=== PATIENT | male | born 1970 | race Caucasian/White ===

== ENCOUNTER 2017-05-29 01:38 | Emergency (ER) | payer OTHER ==
[~2017-05-29] VITALS: Ht 170.2 cm; Wt 90.7 kg
[2017-05-29 01:48] VITALS: BP 137/97
--- NOTE | 2017-05-29 02:19 | NUR ---
TO ER BED 8
--- NOTE | 2017-05-29 02:30 | NUR ---
Patient being evaluated by physician at bedside.
[2017-05-29 02:44] VITALS: BP 137/97
--- NOTE | 2017-05-29 02:44 | NUR ---
Patient discharged with v/s stable. Written and verbal after care instructions given and explained. Patient verbalized understanding. Ambulatory with steady gait. All questions addressed prior to discharge. Advised to follow up with PMD.
== END 2017-05-29 02:44 | disposition home or self-care (01) ==
LOC: MED 01:38
DX: E04.9 Nontoxic goiter, unspecified (principal); Z90.89 Acquired absence of other organs
CPT/HCPCS: 99281

== ENCOUNTER 2017-09-30 18:24 | Emergency (ER) | payer OTHER ==
[~2017-09-30] VITALS: Ht 172.7 cm; Wt 90.7 kg
[2017-09-30 18:25] VITALS: BP 129/96
--- NOTE | 2017-09-30 18:33 | NUR ---
PT TRIAGED, PT AMBULATED TO ER LOBBY, WAITING FOR ER BED. ERMD NOTIFIED OF PATIENT STATUS.
--- NOTE | 2017-09-30 20:45 | NUR ---
PATIENT AMBULATED TO ER BED 2.
--- NOTE | 2017-09-30 20:50 | NUR ---
PATIENT IS A 47 Y/O MALE WHO PRESENTS TO THE ED C/O COUGH. PT STATES, "I HAVE BEEN COUGHING SINCE TUESDAY." PT REPORTS 10/10 CHEST PAIN THAT DOES NOT RADIATE. PT DENIES CP, REPORTS MILD SOB, LUNG SOUNDS CRACKLES BILATERALLY, REPORTS VOMITING DENIES NAUSEA/DIARRHEA. PT AAOX4, RR EVEN/UNLABORED. PT REPOSITIONED FOR COMFORT, BED IN LOWEST POSITION. ER MD DR. YOON NOTIFIED. WILL CONTINUE TO MONITOR.
[2017-09-30] MEDS: KETOROLAC 60 MG/2 ML VIAL IM ONE (21:28)
[2017-09-30 23:05] VITALS: BP 121/82
--- NOTE | 2017-09-30 23:05 | NUR ---
Patient discharged with v/s stable. Written and verbal after care instructions given and explained. Patient alert, oriented and verbalized understanding of instructions. Ambulatory with steady gait. All questions addressed prior to discharge. ID band removed. Patient advised to follow up with PMD. Rx of PREDNISONE AND MOTRIN given. Patient educated on indication of medication including possible reaction and side effects. Opportunity to ask questions provided and answered.
== END 2017-09-30 23:05 | disposition home or self-care (01) ==
LOC: MED 18:24
DX: J02.9 Acute pharyngitis, unspecified (principal)
CPT/HCPCS: 96372; 99283; J1885

== ENCOUNTER 2019-11-16 11:19 | Inpatient (IN) | payer OTHER ==
[~2019-11-16] VITALS: Ht 162.6 cm; Wt 91.6 kg
--- NOTE | 2019-11-16 11:19 | NUR ---
Patient BIBA BLS, transferred to bed 8. RN evaluating the patient at bedside.
--- NOTE | 2019-11-16 11:29 | NUR ---
Pt providing urine in urinal at bedside
[2019-11-16 11:30] VITALS: BP 143/92
--- NOTE | 2019-11-16 11:32 | NUR ---
49 y/o M biba for generalized adbominal pain since 3am. Pt reports intermittent burning, sharp, and throbbing pain. Current pain level 7/10. Pt reports having diarrhea all last night and this morning. Pt taking Omperazole 40mg PRN. A&O x4. Respirations even and unlabored. HOB elevated, bed in lowest position, bed rail up x1. Waiting for ERMD to evaluate pt. Allergies: NKA Med hx: deveriticulitis, HDL, and sleep apnea
[2019-11-16] MEDS ORDERED: CIPR500T4 PO (11:37)
[2019-11-16] MEDS ORDERED: NACL 0.9% 1,000 ML IV ONE (11:40)
[2019-11-16] MEDS ORDERED: KETOROLAC 30 MG/ML VIAL IVP ONE (11:40)
--- NOTE | 2019-11-16 11:50 | NUR ---
Per verbal order by Dr. Del Cid. Bolus IV fluid NS 0.9% 1,000ml.
--- NOTE | 2019-11-16 12:00 | NUR ---
Patient taken to CT scan via wheelchair by tech.
[2019-11-16 12:29] LABS: BASOPHILS % (AUTO) 0.5 % (0.0-2.0); EOSINOPHILS # (AUTO) 0.1 K/uL (0-0.4); EOSINOPHILS % (AUTO) 0.7 % (0.0-4.0); HEMATOCRIT 43.8 % (36-52); HEMOGLOBIN 14.9 g/dL (12.0-18.0); LYMPHOCYTES # (AUTO) 1.3 K/uL (2.0-11.5); LYMPHOCYTES % (AUTO) 15.3 % (20.5-51.1); MEAN CORPUSCULAR HEMOGLOBIN 29 pg (27-31); MEAN CORPUSCULAR HGB CONC 34 g/dL (33-37); MEAN CORPUSCULAR VOLUME 84.9 fL (80-94); MONOCYTES # (AUTO) 0.7 K/uL (0.8-1.0); MONOCYTES % (AUTO) 8.2 % (1.7-9.3); NEUTROPHILS # (AUTO) 6.3 K/uL (1.8-7.7); NEUTROPHILS % (AUTO) 75.3 % (42.2-75.2); PLATELET COUNT (AUTO) 285 K/uL (140-450); RED BLOOD CELL COUNT(AUTO) 5.16 MIL/uL (4.20-6.10); RED CELL DISTRIBUTION WIDTH 12.8 % (11.6-13.7); WHITE BLOOD COUNT (AUTO) 8.4 K/uL (4.8-10.8)
[2019-11-16] MEDS ORDERED: MORPHINE SULFATE 4 MG/ML SYR IVP ONE ×2 (12:35→16:00)
[2019-11-16 12:46] LABS: APPEARANCE,URINE CLEAR (CLEAR); BILIRUBIN,URINE NEGATIVE (NEGATIVE); BLOOD, URINE TRACE-I (NEGATIVE); COLOR,URINE YELLOW (YELLOW); LEUKOCYTE ESTERASE ,URINE NEGATIVE (NEGATIVE); NITRITE, URINE NEGATIVE (NEGATIVE); PH,URINE 6.5 (5.0-9.0); UGLUCOSE NEGATIVE (NEGATIVE)
--- NOTE | 2019-11-16 13:10 | NUR ---
Lab at bedside
--- NOTE | 2019-11-16 13:23 | NUR ---
Pt reports pain level decreased. Current pain level 3/10.
[2019-11-16 13:58] LABS: ALBUMIN 3.4 g/dL (3.4-5.0); ANION GAP 13.9 (8-16); CARBON DIOXIDE 24.2 mmol/L (21-32); CREATININE 0.8 mg/dL (0.6-1.3); POTASSIUM 4.1 mmol/L (3.5-5.1); TOTAL BILIRUBIN 0.5 mg/dL (0.0-1.0)
--- NOTE | 2019-11-16 15:00 | NUR ---
Pt awake and alert. Vital Signs Stable. Daughter at bedside. Will continue to monitor.
[2019-11-16] MEDS ORDERED: metroNIDAZOLE 500 MG/NS PREMIX 100 ML IV ONE ×2 (15:40→17:43)
[2019-11-16] MEDS ORDERED: LEVOFLOXACIN 500 MG/D5W PREMIX 100 ML IV ONE (15:40)
[2019-11-16] MEDS ORDERED: ONDANSETRON 4 MG/2 ML VIAL IVP ONE (16:00)
--- NOTE | 2019-11-16 18:15 | NUR ---
RECEIVED BEDSIDE REPORT FROM ED NURSE. PT RESTING IN BED UPON ARRIVAL. ABLE TO MAKE NEEDS KNOWN. RESPIRATIONS EVEN AND UNLABORED WITH NO SOB OR RESPIRATORY DISTRESS. SKIN WARM AND DRY TO TOUCH. IV SITE IN LAC 18G IS CLEAN, DRY, AND INTACT. MRSA SWAB PERFORMED AND SENT TO LAB. VITAL SIGNS ARE: 128/80 BP, 98.3 TEMP, 17 RR, 89 HR, 99% SPO2 ON ROOM AIR. SAFETY MEASURES IN PLACE. WILL CONTINUE TO MONITOR.
--- NOTE | 2019-11-16 18:16 | NUR ---
Patient will be admitted to care of Dr. Butler. Admited to Med/Surge. Will go to room 105A. Belongings list completed. Report to MICHAEL Trejo.
--- NOTE | 2019-11-16 18:16 | NUR ---
Transfer of care and report given to MICHAEL Trejo
--- NOTE | 2019-11-16 19:02 | NUR ---
GAVE BEDSIDE REPORT TO NIGHTSHIFT NURSE. PT RESTING IN BED UPON ARRIVAL. ABLE TO MAKE NEEDS KNOWN. RESPIRATIONS EVEN AND UNLABORED WITH NO SOB OR RESPIRATORY DISTRESS. SKIN WARM AND DRY TO TOUCH. SAFETY MEASURES IN PLACE. PT IS STABLE
--- NOTE | 2019-11-16 19:03 | NUR ---
RECEIVED BEDSIDE REPORT FROM DAY SHIFT NURSE. SPOUSE AT BEDSIDE. PT RESTING IN BED. ABLE TO MAKE NEEDS KNOWN. RESPIRATIONS EVEN AND UNLABORED WITH NO SOB OR RESPIRATORY DISTRESS ON ROOM AIR. SKIN WARM AND DRY TO TOUCH. IV SITE IN LAC 18G IS PATENT, INTACT AND ASYMPTOMATIC. POC REVIEWED WITH PT, PT VERBALIZED UNDERSTANDING. BOARD UPDATED, SAFETY MEASURES IN PLACE. BED IN LOW POSITION, CALL LIGHT WITHIN REACH. WILL CONTINUE TO MONITOR.
[2019-11-16] MEDS ORDERED: ONDANSETRON 4 MG/2 ML VIAL IVP PRN (20:50)
--- NOTE | 2019-11-16 21:00 | NUR ---
PT UPSET D/T IS NOT HERE AND SEE PT DURING NIGHT TIME. EXPLAINED HOSPITAL SYSTEM, AND RN RECEIVED ALL ORDER FROM BY PHONE. PT UNDERSTOOD.
[2019-11-16] MEDS: DEXT 5% / NACL 0.45% 1,000 ML IV SCH (21:28)
[2019-11-16] MEDS: HYDROmorphone 1 MG/ML AMP IVP PRN (21:30)
--- NOTE | 2019-11-16 21:30 | NUR ---
PT C/O ABD PAIN 05/19, GIVEN DILAUDID MD ORDERED. PT TOLERATED WELL.
--- NOTE | 2019-11-16 23:59 | NUR ---
VS CHECKED, WITHIN PT'S BASELINE, WILL CONTINUE TO MONITOR.
[2019-11-17] VITALS: BP 122/80
--- NOTE | 2019-11-17 01:06 | NUR ---
PT C/O ABD PAIN, 03/19. GIVEN NORCO MD ORDERED. WILL CONTINUE TO MONITOR.
[2019-11-17] MEDS: HYDROcodone/APAP 5/325 MG 1 TAB TAB PO PRN (01:07)
--- NOTE | 2019-11-17 02:15 | NUR ---
PT SLEEPING IN BED COMFORTABLY. NO ACUTE DISTRESS NOTED.
[2019-11-17] MEDS: metroNIDAZOLE 500 MG/NS PREMIX 100 ML IV SCH ×3 (04:32→20:30)
--- NOTE | 2019-11-17 04:32 | NUR ---
GIVEN FLAGYL MD ORDERED. PT TOLERATED WELL.
--- NOTE | 2019-11-17 06:37 | NUR ---
PT IN STABLE CONDITION. WILL ENDORSE PT TO DAY SHIFT NURSE FOR CONTINUOUS CARE.
--- NOTE | 2019-11-17 07:00 | NUR ---
RECEIVE BEDSIDE REPORT FROM NIGHT NURSE, PT IS AAOX4, PT IS STABLE, LAC 18G RUNNING D51/2NS AT 100 ML, SAFETY MEASURES IN PLACE, CALL LIGHT WITHIN REACH, WILL CONTINUE TO MONITOR.
[2019-11-17 07:24] LABS: BASOPHILS # (AUTO) 0.1 K/uL (0.00-0.22); BASOPHILS % (AUTO) 1.2 % (0.0-2.0); EOSINOPHILS # (AUTO) 0.2 K/uL (0-0.4); EOSINOPHILS % (AUTO) 3.1 % (0.0-4.0); HEMATOCRIT 39.2 % (36-52); HEMOGLOBIN 13.4 g/dL (12.0-18.0); LYMPHOCYTES # (AUTO) 1.3 K/uL (2.0-11.5); LYMPHOCYTES % (AUTO) 23.1 % (20.5-51.1); MEAN CORPUSCULAR HEMOGLOBIN 29 pg (27-31); MEAN CORPUSCULAR HGB CONC 34 g/dL (33-37); MEAN CORPUSCULAR VOLUME 85.3 fL (80-94); MONOCYTES # (AUTO) 0.8 K/uL (0.8-1.0); MONOCYTES % (AUTO) 13.3 % (1.7-9.3); NEUTROPHILS # (AUTO) 3.4 K/uL (1.8-7.7); NEUTROPHILS % (AUTO) 59.3 % (42.2-75.2); PLATELET COUNT (AUTO) 272 K/uL (140-450); RED BLOOD CELL COUNT(AUTO) 4.59 MIL/uL (4.20-6.10); RED CELL DISTRIBUTION WIDTH 12.8 % (11.6-13.7); WHITE BLOOD COUNT (AUTO) 5.7 K/uL (4.8-10.8)
[2019-11-17 08:00] VITALS: BP 116/78
[2019-11-17] MEDS: DEXT 5% / NACL 0.45% 1,000 ML IV SCH (08:18)
[2019-11-17] MEDS ORDERED: ESCITALOPRAM 20 MG TAB PO SCH (09:00)
[2019-11-17 09:08] LABS: ANION GAP 10.9 (8-16); CREATININE 0.8 mg/dL (0.6-1.3); POTASSIUM 3.9 mmol/L (3.5-5.1)
[2019-11-17 09:09] LABS: ALBUMIN 3.1 g/dL (3.4-5.0); TOTAL BILIRUBIN 0.4 mg/dL (0.0-1.0)
--- NOTE | 2019-11-17 09:38 | NUR ---
GAVE PT ORDERED MEDICATION, EDUCATION GIVEN, PT VERBALIZE UNDERSTANDING OF TEACHING, PT TOLERATED MEDICATION WELL, PT IS STABLE, CALL LIGHT WITHIN REACH.
[2019-11-17] MEDS ORDERED: HYOSCYAMINE 0.125 MG TAB PO PRN (10:35)
--- NOTE | 2019-11-17 11:44 | NUR ---
GAVE PT LEVSIN FOR ABDOMINAL PAIN ORDERED, EDUCATION GIVEN, PT VERBALIZED UNDERSTANDING, PT TOLERATED WELL, PT IS STABLE.
--- NOTE | 2019-11-17 12:18 | NUR ---
DC PLANNIN YRS OLD MALE PATIENT WAS ADMITTED FROM HOME WITH A DX OF COLITIS .PT STATED HE HAD INTERMITTENT DIARRHEA C-DIFF WILL BE CHECKED. PT HAS A HX OF DIVERTICULITIS DEPRESSION AND OBESITY. CT ABD/PELVIS SHOWED COLITIS AND ULTRASOUND OF THE KIDNEY SHOWED RENAL CYST. STARTED ON LEVAQUIN AND FLAGYL. SEEN BY GI DR MUNOZ ORDERED AWAITING FOR THE STOOL ANALYSIS AND CONSIDER COLONOSCOPY IF THE SYMPTOM ARE PERSISTENT. DC PLAN TO GO HOME WHEN STABLE CM TO FOLLOW. Addendum: 11/19/19 at 1325 by Marleen Linn CM CURRENT LABS INCLUDE WBC 6.1, H/H 14.3/42.1, NA/K 143/3.9, BUN/CREA 6/0.8. ON LEXAPRO AND ELAVIL. NEGATIVE FOR C DIFF. FOR DC BACK TO HOME TODAY, NO NEEDS.
[2019-11-17] MEDS ORDERED: LEVOFLOXACIN 500 MG/D5W PREMIX 100 ML IV SCH (15:00)
[2019-11-17 16:00] VITALS: BP 119/76
--- NOTE | 2019-11-17 16:00 | NUR ---
GAVE REPORT TO MICHAEL ROBERTSON, FOR CONTINUITY OF CARE, PT STABLE.
[2019-11-17] MEDS: HYDROmorphone 1 MG/ML AMP IVP PRN ×2 (17:04→22:44)
--- NOTE | 2019-11-17 17:08 | NUR ---
PATIENT COMPLAINS OF ABD PAIN, DILAUDID GIVEN AT THIS TIME. WILL CONTINUE TO MONITOR.
--- NOTE | 2019-11-17 18:11 | NUR ---
PATIENT LYING DOWN IN BED TALKING ON THE PHONE. NO DISTRESS NOTED. WILL CONTINUE TO MONITOR.
--- NOTE | 2019-11-17 19:13 | NUR ---
GAVE REPORT TO ENVIRONMENTAL SERVICES SUPERVISOR NURSE FOR CONTINUITY OF CARE. PATIENT IN STABLE CONDITION.
--- NOTE | 2019-11-17 19:14 | NUR ---
RECEIVED PATIENT FROM AM SHIFT NURSE IN STABLE FOR CONTINUITY OF CARE. RESPIRATIONS EVEN, UNLABORED. NO S/SX ACUTE DISTRESS. IV SITE TO LEFT AC 18G PATENT/INTACT, INFUSING FLUIDS WELL. NO C/O PAIN AT THIS TIME. ISOLATION PRECAUTIONS OBSERVED. PLAN OF CARE DISCUSSED WITH PATIENT. CALL LIGHT WITHIN REACH. WILL CONTINUE TO MONITOR.
[2019-11-17] MEDS: AMITRIPTYLINE 25 MG TAB PO SCH (20:30)
--- NOTE | 2019-11-17 22:44 | NUR ---
PATIENT C/O ACHING ABDOMINAL PAIN. MEDICATED ORDERED. CALL LIGHT WITHIN REACH. WILL CONTINUE TO MONITOR.
--- NOTE | 2019-11-17 23:44 | NUR ---
REASSESSED PAIN LEVEL. PATIENT IS ASLEEP. NO S/SX ACUTE DISTRESS. CALL LIGHT WITHIN REACH. WILL CONTINUE TO MONITOR.
[2019-11-18] VITALS: BP 109/66
--- NOTE | 2019-11-18 01:15 | NUR ---
MADE ROUNDS. PATIENT IS ASLEEP AND IN STABLE CONDITION. NO C/O PAIN. NO S/SX ACUTE DISTRESS. CALL LIGHT WITHIN REACH. WILL CONTINUE TO MONITOR.
[2019-11-18] MEDS: DEXT 5% / NACL 0.45% 1,000 ML IV SCH ×2 (02:38→22:34)
--- NOTE | 2019-11-18 03:00 | NUR ---
PATIENT ASLEEP AND IN STABLE CONDITION. NO C/O PAIN. NO S/SX ACUTE DISTRESS. CALL LIGHT WITHIN REACH. WILL CONTINUE TO MONITOR.
[2019-11-18] MEDS: metroNIDAZOLE 500 MG/NS PREMIX 100 ML IV SCH ×3 (04:03→20:18)
--- NOTE | 2019-11-18 05:05 | NUR ---
PATIENT CONTINUES IN STABLE CONDITION. NO C/O PAIN. NO S/SX ACUTE DISTRESS. CALL LIGHT WITHIN REACH. ISOLATION PRECAUTIONS OBSERVED. WILL CONTINUE TO MONITOR.
--- NOTE | 2019-11-18 07:19 | NUR ---
RECEIVED REPORT FROM NIGHT NURSE FOR CONTINUITY OF CARE, PT IS STABLE, ASLEEP IN BED, RESPIRATIONS ARE EVEN AND UNLABORED ON ROOM AIR, LAC 18G RUNNING D51/2NS AT 40 ML/H, SAFETY MEASURES IN PLACE, UPDATE WHITE BOARD, CALL LIGHT WITHIN REACH, WILL CONTINUE TO MONITOR
--- NOTE | 2019-11-18 07:19 | NUR ---
ENDORSED PATIENT TO AM SHIFT NURSE IN STABLE CONDITION FOR CONTINUITY OF CARE.
[2019-11-18 08:00] VITALS: BP 134/84
--- NOTE | 2019-11-18 08:12 | NUR ---
PATIENT HAS BEEN SCREENED AND CATEGORIZED MODERATE NUTRITION RISK. PATIENT WILL BE SEEN WITHIN 3-5 DAYS OF ADMISSION. 11/19/19 - 11/21/19 LESLEE GAMBOA MBA,BAO N.B. FNS REFERRAL RECEIVED WITH INACCURATE TRIGGER DATA VS EMERGENCY, H&P, AND CONSULTATION REPORTS. PT CATEGORIZED MODERATE RISK.
[2019-11-18] MEDS: HYDROcodone/APAP 5/325 MG 1 TAB TAB PO PRN (08:47)
[2019-11-18] MEDS ORDERED: ESCITALOPRAM 20 MG TAB PO SCH (09:00)
--- NOTE | 2019-11-18 11:00 | NUR ---
PT AWAKE IN BED, TALKING ON THE PHONE, PT IS STABLE, NO SIGNS OF DISTRESS NOTED, CALL LIGHT WITHIN REACH.
--- NOTE | 2019-11-18 12:48 | NUR ---
GAVE PT ORDERED MEDICATION, EDUCATION GIVEN, PT VERBALIZED UNDERSTANDING, PT TOLERATED WELL, PT IS STABLE, AT BEDSIDE, CALL LIGHT WITHIN REACH.
[2019-11-18] MEDS: HYDROmorphone 1 MG/ML AMP IVP PRN ×2 (13:19→20:18)
--- NOTE | 2019-11-18 13:19 | NUR ---
GAVE DILAUDID FOR SEVERE ABDOMINAL PAIN OF 7/10, PT IRRITABLE AND RUBBING SITE, EDUCATION GIVEN, PT VERBALIZE UNDERSTANDING, PT TOLERATED WELL, PT IS STABLE, AT BEDSIDE, CALL LIGHT WITHIN REACH.
--- NOTE | 2019-11-18 15:15 | NUR ---
PT IS RESTING IN BED, WATCHING TV WITH HIS , PT IS STABLE, NO SIGNS OF DISTRESS NOTED, RESPIRATIONS ARE EVEN AND UNLABORED ON ROOM AIR.
[2019-11-18 16:00] VITALS: BP 127/78
--- NOTE | 2019-11-18 17:40 | NUR ---
PT IS WATCHING TV, AT BEDSIDE, PT IS STABLE, NO SIGNS OF DISTRESS NOTED, RESPIRATIONS ARE EVEN AND UNLABORED ON ROOM AIR, CALL LIGHT WITHIN REACH.
--- NOTE | 2019-11-18 19:14 | NUR ---
RECEIVED BEDSIDE REPORT FROM DAY SHIFT NURSE. PATIENT IS AWAKE, ALERT, AND COOPERATIVE. RESPIRATION EVEN UNLABORED ON ROOM AIR. NO DISTRESS NOTED. SKIN IS WARM AND DRY. IV PATENT AND INTACT. FAMILY AT BEDSIDE. PLAN OF CARE WAS DISCUSSED. ALL SAFETY MEASURES IN PLACE. BED IS AT LOW POSITION. CALL LIGHT WITHIN REACH AND VERBALIZES ITS USE.
--- NOTE | 2019-11-18 19:15 | NUR ---
GAVE REPORT TO NIGHT NURSE FOR CONTINUITY OF CARE, PT IS STABLE.
--- NOTE | 2019-11-18 20:15 | NUR ---
INITIAL ASSESSMENT DONE. VITALS WERE TAKEN. PATIENT IN STABLE CONDITION. PATIENT COMPLAINED OF SIDE STOMACH PAIN 10/10. PRN PAIN MED ADMINISTERED PER ORDER. WILL CONTINUE TO MONITOR.
[2019-11-18] MEDS: AMITRIPTYLINE 25 MG TAB PO SCH (20:18)
--- NOTE | 2019-11-18 20:20 | NUR ---
ALL SCHEDULED MEDS WERE GIVEN PER ORDER. WILL CONTINUE TO MONITOR.
--- NOTE | 2019-11-18 21:00 | NUR ---
DR. MUNOZ GAVE AN ORDER TO ADMINISTER SUPREP BOWEL KIT FOR COLONOSCOPY FOR TOMORROW. ALSO ORDER TO STOP IV ANTIBIOTIC MEDICATION SINCE PATIENT IS NEGATIVE FOR C-DIFF.
--- NOTE | 2019-11-18 21:10 | NUR ---
WILL INFORM MAIN PHYSICIAN REGARDING DR. MUNOZ ORDER TO STOP ANTIBIOTIC. WILL ENDORSE TO DAY SHIFT NURSE.
[2019-11-18] MEDS ORDERED: SUPREP BOWEL PREP KIT 354 ML SOLN.RECON PO SCH (22:00)
[2019-11-18] MEDS ORDERED: BOWEL EVACUANT DRINK 4,000 ML PDS PO SCH (22:30)
--- NOTE | 2019-11-18 23:03 | NUR ---
CHECKED PATIENT. PATIENT SLEEPING RESPIRATION EVEN UNLABORED ON ROOM AIR. NO DISTRESS NOTED. WILL CONTINUE TO MONITOR.
[2019-11-19] VITALS: BP 131/89
--- NOTE | 2019-11-19 00:05 | NUR ---
VITALS WERE TAKEN. PATIENT IN STABLE CONDITION. NO DISTRESS NOTED. WILL CONTINUE TO MONITOR.
--- NOTE | 2019-11-19 01:07 | NUR ---
PATIENT HAD 6 EPISODES OF BOWEL MOVEMENT.
[2019-11-19] MEDS: HYDROcodone/APAP 5/325 MG 1 TAB TAB PO PRN (01:10)
--- NOTE | 2019-11-19 01:10 | NUR ---
PATIENT COMPLAINED OF ABDOMINAL PAIN 5/10. PRN PAIN MED ADMINISTERED PER ORDER. WILL CONTINUE TO MONITOR.
--- NOTE | 2019-11-19 02:06 | NUR ---
CHECKED PATIENT. PATIENT SLEEPING RESPIRATION EVEN UNLABORED ON ROOM AIR. NO DISTRESS NOTED, WILL CONTINUE TO MONITOR.
--- NOTE | 2019-11-19 04:18 | NUR ---
CHECKED PATIENT. PATIENT SLEEPING RESPIRATION EVEN UNLABORED ON ROOM AIR. NO DISTRESS NOTED, WILL CONTINUE TO MONITOR.
[2019-11-19] MEDS: metroNIDAZOLE 500 MG/NS PREMIX 100 ML IV SCH ×2 (05:10→13:37)
--- NOTE | 2019-11-19 07:13 | NUR ---
PER MEDICAL INSURANCE VERIFIER NURSE, PATIENT BM IS CLEAR
--- NOTE | 2019-11-19 07:13 | NUR ---
ENDORSED PATIENT TO DAY SHIFT NURSE. PATIENT IS IN STABLE CONDITION.
--- NOTE | 2019-11-19 07:14 | NUR ---
ENDORSED PATIENT TO DAY SHIFT NURSE. PATIENT IS IN STABLE CONDITION.
--- NOTE | 2019-11-19 07:15 | NUR ---
RECEIVED PATIENT FROM CASINO CASHIER MANAGER NURSE FOR CONTINUITY OF CARE. PATIENT IS SLEEPING AT THIS TIME. RESPIRATIONS EVEN AND UNLABORED, ROOM AIR. VISIBLE CHEST RISE NOTED. NO EDEMA NOTED. ABDOMEN ROUND AND NONTENDER. LAST BM 11/19/2019, 7X PER NIGHT NURSE, ERNESTO. NPO AFTER MIDNIGHT. PATIENT WILL HAVE COLONOSCOPY TODAY. SKIN WARM, DRY, AND INTACT. IV IN THE LEFT AC G18 RUNNING D51/2NS AT 40 ML/HR. PATIENT IS AMBULATORY. BED IN LOW POSITION. CALL LIGHT IS WITHIN REACH. WILL CONTINUE TO MONITOR
[2019-11-19 07:56] LABS: BASOPHILS # (AUTO) 0.1 K/uL (0.00-0.22); BASOPHILS % (AUTO) 1.3 % (0.0-2.0); EOSINOPHILS # (AUTO) 0.2 K/uL (0-0.4); EOSINOPHILS % (AUTO) 3.3 % (0.0-4.0); HEMATOCRIT 42.1 % (36-52); HEMOGLOBIN 14.3 g/dL (12.0-18.0); LYMPHOCYTES # (AUTO) 2.1 K/uL (2.0-11.5); LYMPHOCYTES % (AUTO) 34.9 % (20.5-51.1); MEAN CORPUSCULAR HEMOGLOBIN 29 pg (27-31); MEAN CORPUSCULAR HGB CONC 34 g/dL (33-37); MEAN CORPUSCULAR VOLUME 84.9 fL (80-94); MONOCYTES # (AUTO) 0.6 K/uL (0.8-1.0); MONOCYTES % (AUTO) 9.8 % (1.7-9.3); NEUTROPHILS # (AUTO) 3.1 K/uL (1.8-7.7); NEUTROPHILS % (AUTO) 50.7 % (42.2-75.2); PLATELET COUNT (AUTO) 335 K/uL (140-450); RED BLOOD CELL COUNT(AUTO) 4.96 MIL/uL (4.20-6.10); RED CELL DISTRIBUTION WIDTH 12.8 % (11.6-13.7); WHITE BLOOD COUNT (AUTO) 6.1 K/uL (4.8-10.8)
[2019-11-19 08:00] VITALS: BP 115/75
[2019-11-19 08:00] LABS: ANION GAP 12.7 (8-16); CARBON DIOXIDE 28.2 mmol/L (21-32); CREATININE 0.8 mg/dL (0.6-1.3); POTASSIUM 3.9 mmol/L (3.5-5.1)
[2019-11-19 08:04] LABS: PROTHROMBIN TIME 11.3 secs (10.8-13.4)
[2019-11-19] MEDS ORDERED: ESCITALOPRAM 20 MG TAB PO SCH (09:00)
--- NOTE | 2019-11-19 09:48 | NUR ---
PER DR. FELIZ, CONTINUE TO FLAGYL FOR COLITIS.
[2019-11-19] MEDS: HYDROmorphone 1 MG/ML AMP IVP PRN (10:25)
--- NOTE | 2019-11-19 12:06 | NUR ---
Late entry. Confirmed with RN that 0.9 NS IV completed at 1250. Flagyl IV completed at 1820
[2019-11-19] MEDS ORDERED: diphenhydrAMINE 50 MG/ML VIAL ONE (12:11)
[2019-11-19] MEDS ORDERED: MIDAZOLAM 2 MG/2 ML VIAL ONE ×2 (12:12→12:14)
[2019-11-19] MEDS ORDERED: fentaNYL 0.05 MG/ML VIAL ONE (12:12)
[2019-11-19] MEDS: MIDAZOLAM 2 MG/2 ML VIAL IVP ONE ×2 (12:43→13:35)
[2019-11-19] MEDS: fentaNYL 0.05 MG/ML VIAL IVP ONE ×2 (12:44→13:34)
--- NOTE | 2019-11-19 12:46 | NUR ---
PT. IS OFF TO OR FOR I&D
--- NOTE | 2019-11-19 13:26 | NUR ---
PATIENT IS BACK FROM COLONOSCOPY.
[2019-11-19] MEDS ORDERED: METR500T1 PO (13:43)
[2019-11-19] MEDS ORDERED: LEVO500T98 PO (13:43)
[2019-11-19 14:38] VITALS: BP 101/71
[2019-11-19] MEDS ORDERED: INFLUENZA VACCINE QUAD 0.5 ML SYR IMVAC PRN (14:45)
[2019-11-19 15:31] VITALS: BP_SYST 112
--- NOTE | 2019-11-19 15:44 | NUR ---
PATIENT IS BACK FROM OR POST I&D. PATIENT HAS BANDAGES IN BILAT AXILLARY AND BUTTOCKS AREA. Addendum: 11/19/19 at 1600 by Princess Krystal Vogel RN WRONG ENTRY
--- NOTE | 2019-11-19 15:45 | NUR ---
GIVEN FLU SHOT IN THE RIGHT UPPER ARM. EXPLAINED TO PATIENT MED. PATIENT VERBALIZED UNDERSTANDING. BED IN LOW POSITION. CALL LIGHT IS WITHIN REACH.
--- NOTE | 2019-11-19 16:00 | NUR ---
GIVEN DISCHARGE INSTRUCTION: FOLLOW UP WITH PCP. BLEACHING SUPERVISOR PRESCRIBED MEDS IN THE PREFERRED PHARMACY. VERBALIZED UNDERSTANDING. PATIENT SIGNED DISCHARGE PAPER.
--- NOTE | 2019-11-19 16:02 | NUR ---
DISCONTINUED IV. MINIMAL BLEEDING. SECURED WITH 2X2 WITH TAPE. REMOVED ID BAND
--- NOTE | 2019-11-19 16:10 | NUR ---
DISCHARGED PATIENT ON FOOT. PATIENT IS IN STABLE CONDITION.
[2019-11-19] MEDS ORDERED: SUPREP BOWEL PREP KIT 354 ML SOLN.RECON PO ONE (21:30)
[2019-11-20] MEDS ORDERED: PSYLLIUM 12.2 GM/PKT PO SCH (09:00)
== END 2019-11-19 16:10 | disposition home or self-care (01) | DRG 244 ==
LOC: MED 11:19 → MTU 17:52
PROVIDERS: ADMIT Internal Medicine Pulmonary Disease; ATTEND Internal Medicine Pulmonary Disease
PROC: 0DBE8ZX Excision of Large Intestine, Via Natural or Artificial Opening Endoscopic, Diagnostic (ICD-10-PCS; principal; 2019-11-19 12:00)
DX: K57.92 Diverticulitis of intestine, part unspecified, without perforation or abscess without bleeding (principal); E66.9 Obesity, unspecified; K52.9 Noninfective gastroenteritis and colitis, unspecified; Z68.34 Body mass index [BMI] 34.0-34.9, adult; G47.30 Sleep apnea, unspecified; F32.9 Major depressive disorder, single episode, unspecified; G89.29 Other chronic pain; Z81.8 Family history of other mental and behavioral disorders; K63.5 Polyp of colon
CPT/HCPCS: 36415; 76770; 80048; 80053; 81003; 82150; 83690; 85025; 85610; 85730; 87070; 87081; 88305; 96365; 96375; 96376; 99285; J1170; J1200; J1885; J1956; J2250; J2270; J2405; J3010; J3490; J7030; Q0092